=== PATIENT | female | born 1990 | race Caucasian/White ===

== ENCOUNTER → 2019-11-15 14:06 | Outpatient (CLI) | payer BC, SELFPAY ==
[2019-11-16 18:21] LABS: COVID19 Sendout Not Detected (Not Detect)
== END ==
PROVIDERS: Visit Provider Physician Assistant
DX: Z11.59 Encounter for screening for other viral diseases (principal)
CPT/HCPCS: 87635

== ENCOUNTER 2019-11-19 13:34 | Observation (INO) | payer BC, SELFPAY ==
[2019-11-11 09:43] VITALS: BMI 25.4
[2019-11-18] VITALS (15 sets, daily range): BP systolic 109–141; BP diastolic 57–92; PULSE 86–113; RESP 11–18; TEMP 36.2–36.6; O2SAT 94–100; BMI 25.0
--- NOTE | 2019-11-18 | DI.RAD.S_ITS ---
PROCEDURE: XR LUMBAR SPINE 2-3V INDICATIONS: S1-S2 TLIF TECHNIQUE: 2 views of the lumbar spine were acquired. COMPARISON: None. FINDINGS: Bones: 2 submitted intraoperative C-arm images demonstrate posterior/interbody fusion at the L5-S1 level with fixation hardware and disc spacer in expected position. Soft tissues: Overlying bowel gas pattern is normal. No suspicious soft tissue calcifications. IMPRESSION: Posterior/interbody fusion L5-S1. Dictated by: Marcial Hatfield [facility] Interpreted: Mook Del Toro MD on 11/18/2019 at 16:04 Approved by: Mook Del Toro M.D. on 11/18/2019 at 17:40
[2019-11-18] MEDS: LACTATED RINGERS 1,000 ML 42 ML IV ×2 (10:15→14:09)
--- NOTE | 2019-11-18 11:36 | PM.PREOP ---
Pre-operative Note COVID-19 COVID-19 status: Negative Result date/Date tested (Pos, Neg/Pending): 11/16/19 Interval Note History & Physical reviewed/Exam performed by Physician: Yes Changes to H&P: No
[2019-11-18] MEDS: CEFAZOLIN 2 GM/100 ML FROZ.PIGGY IV (12:05)
--- NOTE | 2019-11-18 12:47 | SUR.OPER ---
Prone on spine table, head in foam head support, padded chest and pelvic supports, gel pad at knees, lower legs supported by pillows; nipples, genitalia and toes free of pressure, arms secured on foam padded arm boards at <90 degrees abduction. Tape over blanket at thigh secured to table.
[2019-11-18] MEDS: BUPIVACAINE 0.25% W/ EPI 30 ML VIAL INJ (12:59)
[2019-11-18] MEDS: BUPIVACAINE LIPOSOME 266 MG/20 ML VIAL INJ (12:59)
--- NOTE | 2019-11-18 15:48 | P.OP_ITS ---
Operative Date/Time/Diagnoses Date of procedure: 11/18/19 Time of procedure: 13:22 Pre-op diagnosis: 1. S1-S2 spondylolisthesis 2. S1-S2 spinal stenosis with neurogenic claudication Post-op diagnosis: same Procedure & Clinicians Procedure: 1. S1-S2 Postero-lateral and posterior interbody fusion 2. S1-S2 interbody cage placement. 3. S1-S2 decompressive laminectomy with bilateral facetecomies 4. S1-S2 Posterior non-segmental instrumentation 5. [place] of bone marrow from iliac crest 6. Utilization of microsurgical technique and operating microscope Same procedure as scheduled: Yes Indications: Patient has been having chronic back pain and worsening lumbar radiculopathy. Patient has transitional anatomy of her lumbar spine. The most caudal mobile segment is named as S1-S2 by radiologist. To keep the nomenclature consistent with documentation during surgery, where also calling the level that is being operated on S1-S2. The anatomy of the S1-S2 is of that of lumbar sacral junction. Patient failed multiple conservative management with worsening pain weakness and numbness in her lower extremity. Patient has been having difficulty performing activity of daily living. After discussing risks benefits of treatment options, patient elected proceed with surgery. Surgeon: Jose Gunderson Soaker Hides: Shiraz Moore Click Yes if Unassisted: No Anesthesia Type: General Operative Notes Closure Type: primary Specimen(s): none sent Prosthetic devices, grafts, tissues, transplants, or devices: Globus revolve screws, Expandible titanium cages Estimated Blood Loss (mL): 100 Blood products transfused: none Procedure in detail: Patient was seen in the preoperative area. Risks and benefits of the surgery was discussed with the patient. Informed consent was obtained from the patient and placed in the chart. Surgical site was marked. Patient was taken to the operative room. General anesthesia was administered. Prophylactic antibiotic was given to the patient less than 30 min before the incision was made. Patient was placed into a prone position on the Marty table. Patient's back was then prepped and draped in the sterile fashion. Time- out was performed at this time. Using AP and lateral C-arm imaging the interval between S1-S2 was identified and marked on patient's back. Patient has transitional anatomy at her lumbosacral junction. In order to keep nomenclature consistent with radiologist, the lumbosacral junctional level will be named S1-S2. A 2 inch incision 2 in from midline was made on the right side first. The fascia was incised in line with skin incision. Globus MARS retractors was placed inside the incision and docked onto the S1 lamina. Using microsurgical technique and operating microscope, a S1 laminectomy and S1-S2 facetectomy was performed using a Kerrison rongeur. Patient's S1-S2 level was found to be grossly unstable with spondylolisthesis. Patient was found have severe neural foramen stenosis as well as central stenosis. The stenosis was fully decompressed after the laminectomy and facetectomy was completed. Patient's S1-S2 level was unstable and require fusion procedure to stabilize. The disc space at S1-S2 was identified. And a total diskectomy was performed at S1-S2 level. The endplates were decorticated using a rasp and shaver. The total diskectomy and decortication was performed at S1-S2 level in order to to accomplish a S1-S2 fusion. The local bone from the laminectomy and facetectomy was saved for local bone grafting. After the total diskectomy and decortication was completed, Trifecta bone graft material was combined with local bone that was harvested earlier. At this time, a separate skin is incision was made over the iliac crest. A Jamshidi needle was inserted into the iliac crest through a separate skin incision. 5 cc of bone marrow aspiration was obtained through the separate skin incision using a Jamshidi needle from the iliac crest. The bone marrow aspiration was combined with local bone and the Trifecta bone grafting material. The bone grafting material was placed into the S1-S2 interbody space along with a expandable cage. The cage was expanded to its maximum height using the torque limiting screwdriver. At this time a mirror image incision was made on the left side. The fascia was incised in line with the skin incision. Globus MARS retractor was inserted and docked onto the S1-S2 posterolateral gutter. Using the power drill, posterior- lateral decortication was performed at S1-S2 level until bleeding cortical bone was identified. The remaining bone grafting material was placed into the S1-S2 posterior lateral gutter he order to accomplish posterolateral fusion at the S1- S2 level. Using the double C-arm technique, pedicle screws were placed into the S1-S2 pedicles bilaterally. This was done by placing the Jamshidi needle into the pedicles, then placing the guidewires over the Jamshidi needle, and finally placing the cannulated screws over the guidewires bilaterally. After the pedicle screws were placed, 2 titanium rods was locked into the heads of the pedicle screws using locking caps and torque limiting screwdriver. Thread reducers was used to reduce patient's spondylolisthesis, and adequate reduction was accom plished using the threaded do stairs. After all the hardware was placed, and confirmed with AP and lateral C-arm imaging, the wound was then irrigated with sterile normal saline and packed with Ray-Mary gauze for 3 min to accomplish hemostasis. After the gauze was removed the deep fascia was closed with #1 Vicryl suture. The subcutaneous layer was closed with 2-0 Vicryl. The skin was closed with skin keara. Patient tolerated the procedure well. There were no complications. Complications: none Post-operative Condition: stable Disposition: PACU Plan for aftercare: Admit to inpatient hospital
[2019-11-18] MEDS: HYDROMORPHONE 2 MG INJ IV ×2 (16:00→16:17)
[2019-11-18] MEDS: fentaNYL 100 MCG/2 ML INJ IV (16:07)
--- NOTE | 2019-11-18 16:30 | SUR.PHASEI ---
Pt turned and positioned on l side, moved well with assist. Report to Jace, medicated with fentanyl and dilaudid.
--- NOTE | 2019-11-18 17:01 | SUR.PHASEI ---
Pt transported to room 223 on room air, report to Jace, left pt in stable condition. Placed on 1/l nasal cannula 02 and bed low, locked and call marcial in hand, SCD's on.
[2019-11-18] MEDS: HYDROMORPHONE 0.5 MG INJ IV ×2 (18:05→20:44)
[2019-11-18] MEDS: SODIUM CHLORIDE 0.9% 1,000 ML 100 ML IV (18:05)
[2019-11-18] MEDS: ONDANSETRON 4 MG/2 ML INJ IV (20:44)
[2019-11-18] MEDS: SENNOSIDES 8.6 MG TABLET 17.2 MG PO (20:45)
[2019-11-18] MEDS: CEFAZOLIN 1 GM/50 ML FROZ.PIGGY IV (20:45)
[2019-11-18] MEDS: DOCUSATE 100 MG CAPSULE PO (20:45)
[2019-11-18] MEDS: OXYCODONE IR 10 MG TABLET PO (23:43)
[2019-11-18] MEDS: hydrOXYzine pamoate 25 MG CAPSULE PO (23:44)
[2019-11-19] VITALS (7 sets, daily range): BP systolic 104–134; BP diastolic 59–86; PULSE 76–110; RESP 16–18; TEMP 35.9–37.9; O2SAT 93–100
[2019-11-19] MEDS: OXYCODONE IR 10 MG TABLET PO ×6 (03:27→23:28)
[2019-11-19] MEDS: CEFAZOLIN 1 GM/50 ML FROZ.PIGGY IV (03:30)
[2019-11-19] MEDS: SODIUM CHLORIDE 0.9% 1,000 ML 100 ML IV (05:09)
[2019-11-19] MEDS: hydrOXYzine pamoate 25 MG CAPSULE PO ×2 (07:33→20:13)
--- NOTE | 2019-11-19 08:38 | PC.NURSE ---
PATIENT C/O NAUSEA AND PAIN 7/10 THIS AM. GIVEN 10MG OXYCODONE AND 25MG VISTARIL PO. PATIENT TOOK NAP, AWOKE FOR BREAKFAST, STATES NAUSEA RESOLVED, ACTUALLY FEELS HUNGRY AND PAIN DOWN TO 3/10.
--- NOTE | 2019-11-19 09:32 | PT.IIE ---
Current Diagnoses Spondylolisthesis, lumbosacral region (11/18/19) Spinal stenosis, lumbar region with neurogenic claudication (11/18/19) Surgery Performed Operation Date: 11/18/19 11:45 Actual Procedures p S1-S2 TLIF - Jose Gunderson MD Surgical History (Last Updated 11/11/19 @ 10:01 by Jessa Lee, RN) [place] teeth removed (Acute) Medical History (Last Updated 11/11/19 @ 10:03 by Jessa Lee RN) Depression (Acute) Migraines (Acute) Sciatica (Acute) Spinal stenosis (Acute) Physical Therapy Inpatient Evaluation/Re-Eval M1 PT/OT-IP Prior Functional Status Start: 11/19/19 11:35 Freq: NEEDED Status: Active Protocol: Document 11/19/19 09:32 AB (Rec: 11/19/19 11:53 AB [email or web address]) Medical Review Prior Functional Status Medical History Reviewed Yes Communication able to make needs known Mobility and Gait pt stated that she is independent with all mobilities and ambulation without AD Social History Household Members significant other,children Living Arrangements Apartment/Condo Number of Floors (Floors) One Floor Number of Stairs To Enter/Railing? no steps to enter Home Environment Standard Height Toilet,Tub/ Shower Home Equipment Front Wheel Walker Additional Social History Comment pt also stated that her mom will stay with her to help her at home pt works as a market president. M2 PT-IP Current Condition Start: 11/19/19 11:35 Freq: NEEDED Status: Active Protocol: Document 11/19/19 09:32 AB (Rec: 11/19/19 11:53 AB [email or web address]) Physical Therapy Current Condition Current Condition Evaluation Date 11/19/19 Treatment Diagnosis s/p S2S2 postlat/post fusion/ lami; difficulty in walking Onset Date 11/18/19 Precautions Lumbar Precautions Log Roll,No Twisting,Limit Bending,Lifting Restriction of 10 lbs,Gait Belt above Incisional Area M3 PT-IP Subjective Start: 11/19/19 11:35 Freq: NEEDED Status: Active Protocol: Document 11/19/19 09:32 AB (Rec: 11/19/19 11:53 AB [email or web address]) Subjective Physical Therapy Visit Type Type Initial Evaluation Visit Start Time 09:32 Visit Stop Time 10:15 Total Visit Minutes 43 Number of ACCOUNTS RECEIVABLE ACCOUNTANT Visits 0 Physical Therapy Visit Comments Patient Comments agreeable to do PT; pt is drowsy with slow reaction time /responses to instructions and questions Therapy Pain Assessment Pain When Pain Assessed At Rest Pain Present Pain Present Pain Reported Location back Intensity 4 Scale Used increases to 8/10 with mobility Pain Management Techniques Apply Cold,Modification of Treatment,Re-positioning, Timing of Activity with Medications M4 PT-IP Mobility and Gait Start: 11/19/19 11:35 Freq: NEEDED Status: Active Protocol: Document 11/19/19 09:32 AB (Rec: 11/19/19 11:53 AB [email or web address]) PT-Bed Mobility Assessment Rolling Type of Rolling Log Rolling Level of Assist Moderate Assistance,Maximal Assistance,1 Person Assistance Supine to Sit Supine to Sit Maximum Assistance,1 Person Assistance Scooting Scooting to Edge of Bed Moderate Assistance,Maximum Assistance PT-Transfer Assessment Sit to and From Stand Sit to and from Stand Moderate Assistance,Maximum Assistance,1 Person Assistance ,2 Person Assistance,Use of Upper Extremities Equipment Transfer Assistive Device Gait Belt,Front Wheeled Walker Transfers Transfer Destination Toilet Transfer Technique ambulated using FWW Transfer Ability Level of Assist Moderate Assistance,Maximum Assistance,1 Person Assistance ,2 Person Assistance,Use of Upper Extremities Comments Mobility Comments educated on back precautions and log roll bed mobility. completed supine to sit max A and max cues. pt was able to sit on EOB SBA to CGA. c/o increase back pain 8/10. completed sit to stand mod to max A x 1-2 and max cues. initial max A for ambulation but able to ambulate towards the toilet and only requiring mod A hallway to the toilet. required max A for controlled descent to the toilet. required assist for brief management. completed sit to stand from the toilet mod to max A and max cues. ambulated towards the chair mod A using FWW. pt agreed to sit up on chair. positioned on chair. call light and table placed wtihin reach. Gait Assessment Gait Gait Assistance Required: Moderate Assistance,Maximum Assistance,1 Person Assist Distance (Feet) 20 Able to Maintain Weight Bearing Status Yes During Gait Assistive Devices Assistive Device Gait Belt,Front Wheeled Walker Orthotic/Prosthetic Devices or Brace: No Gait Deviations General Gait Pattern Antalgic,Decreased Stride Length,Decreased Feet Clearance Factors Limiting Gait Function Factors Limiting Gait Function Decreased Activity Tolerance, Decreased Strength,Limited Range of Motion,Pain,Poor Balance,Poor Safety Awareness Comments Gait Comments pls refer to the mobility section for details PT-Balance Assessment Sitting Balance and Reactions Static Sitting Balance Ability Good Dynamic Sitting Balance Ability Good Standing Balance and Reactions Static Standing Balance Ability Fair Dynamic Standing Balance Ability Fair Device Used FWW M5 PT-IP Objective Assessments Start: 11/19/19 11:35 Freq: NEEDED Status: Active Protocol: Document 11/19/19 09:32 AB (Rec: 11/19/19 11:53 AB [email or web address]) Orientation Orientation/Cognition Level of Alertness Alert Orientation Name Language Function Ability No Deficits Noted Safety Awareness Understands Safety Issues, Decreased Safety Awareness Gross Range of Motion Lower Extremity ROM Assessment Within Functional Limits Strength Lower Extremity Strength Assessment Bilaterally Impaired Comments Strength Comments LLE: 3+/5 RLE 3-/5 Coordination Assessment Gross Coordination Gross Coordination WNL Sensation Assessment Sensation Gross Sensation WNL Muscle Tone Muscle Tone WNL Yes M6 PT-IP Treatment Start: 11/19/19 11:35 Freq: NEEDED Status: Active Protocol: Document 11/19/19 09:32 AB (Rec: 11/19/19 11:53 AB [email or web address]) Physical Therapy Treatment Education Education Provided Precautions,Weight Bearing Status,Post-Op Packet,Safety M7 PT-IP Assessment and Plan Start: 11/19/19 11:35 Freq: NEEDED Status: Active Protocol: Document 11/19/19 09:32 AB (Rec: 11/19/19 11:53 AB [email or web address]) PT Summary Assessment and Plan Potential Rehabilitation Potential Good Status of Condition at Evaluation Evolving Summary Impairments Pain,ROM,Strength,Balance, Coordination,Sensation,Tone, Cognition,Bed Mobility, Transfers,Gait,Activity Tolerance Assessment Summary pt requiring mod to max A with mobility and with c/o increase back pain affecting mobility. pt will have her family to assist her at home. will conduct caregiver training when appropriate. pt will likely progress during hospital stay and if pain is better controlled, pt will be able to mobilize better and go home with assistance. will continue to assess progress. Goals Bed Mobility Goal Standby Assistance Transfer Goal Standby Assistance,Front Wheeled Walker Gait Goal Standby Assistance,Front Wheel Walker Gait Distance 150 Days to Meet Goals 5 Frequency of Treatment Frequency Of Treatment Twice a Day Treatment Plan Physical Therapy Treatment Plan Bed Mobility Training,Transfer Training,Gait Training, Therapeutic Exercise,Balance Retraining,Post Op Education, Discharge Planning,Hot or Cold Pack,Neuromuscular Re-ed, Coordination Retraining,Manual Therapy Recommendations To Nursing Amount of Assist Needed 1 Person Assist Discharge Recommendations PT Discharge Recommendations Home with Assistance Transportation Needs at Discharge Private Vehicle
[2019-11-19] MEDS: HYDROMORPHONE 0.5 MG INJ IV ×4 (10:19→22:54)
[2019-11-19] MEDS: ONDANSETRON 4 MG/2 ML INJ IV (10:19)
[2019-11-19] MEDS: DOCUSATE 100 MG CAPSULE PO ×2 (10:19→21:02)
[2019-11-19] MEDS: ACETAMINOPHEN 325 MG TABLET 650 MG PO (10:19)
--- NOTE | 2019-11-19 10:45 | PM.PNPO.1 ---
Subjective Subjective Date Patient Seen: 11/19/19 Time Patient Seen: 07:31 Interval history: pain moderate to severe. Some nausea no vomiting. Has not yet worked with physical therapy. No fever chills. Exam Vital Signs (past 8 hours): - 11/19/19 03:41 11/19/19 08:00 Temperature 97.7 F 98.6 F Pulse Rate 89 97 H Respiratory Rate 16 18 Blood Pressure 124/81 120/71 Pulse Oximetry 99 100 Oxygen Delivery Method Nasal Cannula Oxygen Flow Rate 0 Narrative Exam Narrative: 28-year-old female resting comfortably in bed in no apparent distress. Lumbar dressing is clean, dry and intact. Motor functions intact bilateral lower extremities. Sensation grossly intact to light touch bilateral lower extremities. Assessment & Plan Post-op Postoperative Procedures: Procedures Operation Date: 11/18/19 11:45 Actual Procedures Side Surgeon p S1-S2 TLIF Jose Gunderson MD postop day 1. Mobilize with physical therapy. Limit bending, twisting, lifting. Continue work on pain control. Add scopolamine patch. likely dc tomorrow. Quality VTE Deep Vein Thrombosis/Pulmonary Embolism Present on Admission: No
--- NOTE | 2019-11-19 10:57 | CM.DANOTE ---
DCP: Case received, EMR reviewed and met with patient. Introduced self and role. Was able to obtain some information from patient regarding her baseline activity level prior to surgery. DCP assessment completed with information currently available. Patient is a 28 year old female who admitted yesterday morning to the care of the orthopedic team. Payer: confirmed: BS [facility] of [facility]. Patient came to the hospital for a surgical procedure. She had S1-S2 postero-lateral fusion. Patient has had history of chronic back and leg pain since she was 19, and history of spinal stenosis. Met with patient in her room. She was sitting up in bed. She is independent at baseline, she resides in [facility] with her life partner, Norman Erickson. She also has an 8 year old son. She is employed at [employer]. P: DCP to continue to follow. Patient should be able to go home when she is medically stable and works with [employer] Chelita Smith RN/[employer]
[2019-11-19] MEDS: SCOPOLAMINE 1 PATCH TOP (11:18)
--- NOTE | 2019-11-19 13:58 | PT.IPTN ---
note reviewed by Caridad Hardin PTA Current Diagnoses Spondylolisthesis, lumbosacral region (11/19/19) Spinal stenosis, lumbar region with neurogenic claudication (11/19/19) Surgery Performed Operation Date: 11/18/19 11:45 Actual Procedures p S1-S2 TLIF - Jose Gunderson MD Physical Therapy Treatment Note M2 PT-IP Current Condition Start: 11/19/19 11:35 Freq: NEEDED Status: Active Protocol: Document 11/19/19 13:29 TP (Rec: 11/19/19 14:45 TP [id number]) Physical Therapy Current Condition Current Condition Evaluation Date 11/19/19 Treatment Diagnosis s/p S2S2 postlat/post fusion/ lami; difficulty in walking Onset Date 11/18/19 Precautions Lumbar Precautions Log Roll,No Twisting,Limit Bending,Lifting Restriction of 10 lbs,Gait Belt above Incisional Area M3 PT-IP Subjective Start: 11/19/19 11:35 Freq: NEEDED Status: Active Protocol: Document 11/19/19 13:29 TP (Rec: 11/19/19 14:45 TP [id number]) Subjective Physical Therapy Visit Type Type Treatment Note Visit Start Time 13:29 Visit Stop Time 13:58 Total Visit Minutes 29 Notes Student NAE Pham supervised by NAE Pham. Number of RECORDS MANAGEMENT ENGINEER Visits 1 Physical Therapy Visit Comments Patient Comments Pt agreeable to participate with PT. Therapy Pain Assessment Pain When Pain Assessed At Rest Pain Present Pain Present Pain Reported Location back Intensity 3 Scale Used Numeric (0 - 10) Pain Behaviors Facial Grimacing,Guarding, Wincing Pain Management Techniques Apply Cold,Modification of Treatment,Re-positioning, Timing of Activity with Medications M4 PT-IP Mobility and Gait Start: 11/19/19 11:35 Freq: NEEDED Status: Active Protocol: Document 11/19/19 13:29 TP (Rec: 11/19/19 14:45 TP [id number]) PT-Bed Mobility Assessment Rolling Type of Rolling Log Rolling Level of Assist Minimal Assistance,1 Person Assistance Supine to Sit Supine to Sit Moderate Assistance,Maximum Assistance,1 Person Assistance Scooting Scooting to Edge of Bed Standby Assistance PT-Transfer Assessment Sit to and From Stand Sit to and from Stand Minimal Assistance,Moderate Assistance,1 Person Assistance ,Use of Upper Extremities Equipment Transfer Assistive Device Gait Belt,Front Wheeled Walker Orthotic/Prosthetic Devices or Brace: No Transfers Transfer Destination Chair,Toilet Transfer Technique ambulated using FWW Transfer Ability Level of Assist Minimal Assistance,Moderate Assistance,1 Person Assistance ,Use of Upper Extremities Comments Mobility Comments Pt reclined in bed upon arrival, drowsy. Agreeable to participate with PT. Pt recalls 3/3 spinal precautions . HOB lowered to flat. Log roll L, CGA-Davis x1. L sidelying to sit, Mod-MaxA x1 for trunk support with verbal cues to push off bed with UE. In sitting, pt reported increase of pain with mild dizziness. Gait belt donned for safety. Sit to stand FWW, Min-ModA x1. Ambulation in hallway, approximately 175', FWW CGA and assist for IV management. Verbal cues for heel-toe gait and increased stride length as tolerated. In room, pt expressed need for use of toilet. Ambulation to restroom FWW, SBA. Stand to sit on toilet FWW/grab bar, SBA. Pt able to void bladder. Sit to stand and ambulation with FWW, SBA to sink to wash hands. Ambulation to chair and stand to sit in chair, FWW SBA with verbal cues for hand placement for slow controlled descent. Pt notes increase of pain during transfers. Uses breathing techniques to decrease pain. Pt positioned in chair with call light and all other needs within reach, ice positioned on low back. Pt education regarding importance of performing ankle pumps each hour. Boyfriend will be present tomorrow for caregiver training. Nurse notified of pt's progress and ability to eliminate. Gait Assessment Gait Gait Assistance Required: Standby Assistance,Contact Guard Assist,Minimum Assistance,1 Person Assist Distance (Feet) 175 Able to Maintain Weight Bearing Status Yes During Gait Assistive Devices Assistive Device Gait Belt,Front Wheeled Walker Orthotic/Prosthetic Devices or Brace: No Gait Deviations General Gait Pattern Antalgic,Decreased Stride Length,Decreased Feet Clearance Factors Limiting Gait Function Factors Limiting Gait Function Decreased Activity Tolerance, Decreased Strength,Limited Range of Motion,Pain,Poor Balance,Poor Safety Awareness Comments Gait Comments see mobility comments PT-Balance Assessment Sitting Balance and Reactions Static Sitting Balance Ability Normal Dynamic Sitting Balance Ability Good Standing Balance and Reactions Static Standing Balance Ability Fair Dynamic Standing Balance Ability Fair Device Used FWW M5 PT-IP Objective Assessments Start: 11/19/19 11:35 Freq: NEEDED Status: Active Protocol: Document 11/19/19 09:32 AB (Rec: 11/19/19 11:53 AB [id number]) Orientation Orientation/Cognition Level of Alertness Alert Orientation Name Language Function Ability No Deficits Noted Safety Awareness Understands Safety Issues, Decreased Safety Awareness Gross Range of Motion Lower Extremity ROM Assessment Within Functional Limits Strength Lower Extremity Strength Assessment Bilaterally Impaired Comments Strength Comments LLE: 3+/5 RLE 3-/5 Coordination Assessment Gross Coordination Gross Coordination WNL Sensation Assessment Sensation Gross Sensation WNL Muscle Tone Muscle Tone WNL Yes M6 PT-IP Treatment Start: 11/19/19 11:35 Freq: NEEDED Status: Active Protocol: Document 11/19/19 13:29 TP (Rec: 11/19/19 14:45 TP [id number]) Physical Therapy Treatment Education Education Provided Precautions,Weight Bearing Status,Safety M7 PT-IP Assessment and Plan Start: 11/19/19 11:35 Freq: NEEDED Status: Active Protocol: Document 11/19/19 13:29 TP (Rec: 11/19/19 14:45 TP [id number]) PT Summary Assessment and Plan Potential Rehabilitation Potential Good Status of Condition at Evaluation Evolving Summary Impairments Pain,ROM,Strength,Balance, Coordination,Sensation,Tone, Cognition,Bed Mobility, Transfers,Gait,Activity Tolerance Assessment Summary Pt mobility improved this afternoon with increased gait distance to 175' with FWW, CGA . Pain is 3/10 at rest and during gait, with increase of pain during transfers. Pt will have assistance at home. Boyfriend will be present tomorrow for caregiver training around 1000. Pt requires Min-ModA x1 for transfers and bed mobility. Continue PT to improve strength, endurance and activity tolerance for safe mobility. Anticipate pt to be clear from PT tomorrow for discharge with assist, pending caregiver training. Goals Bed Mobility Goal Standby Assistance Transfer Goal Standby Assistance,Front Wheeled Walker Gait Goal Standby Assistance,Front Wheel Walker Gait Distance 150 Days to Meet Goals 5 Frequency of Treatment Frequency Of Treatment Twice a Day Treatment Plan Physical Therapy Treatment Plan Bed Mobility Training,Transfer Training,Gait Training, Therapeutic Exercise,Balance Retraining,Post Op Education, Discharge Planning,Hot or Cold Pack,Neuromuscular Re-ed, Coordination Retraining,Manual Therapy Other Recommendations and Next Treatment caregiver training at 1000, Focus log roll, transfers Recommendations To Nursing Amount of Assist Needed 1 Person Assist Discharge Recommendations PT Discharge Recommendations Home with Assistance Transportation Needs at Discharge Private Vehicle
--- NOTE | 2019-11-19 18:34 | PC.NURSE ---
PATIENT AMB IN HALLS WITH FAMILY STEADY ON FEET
[2019-11-19] MEDS: SENNOSIDES 8.6 MG TABLET 17.2 MG PO (21:02)
[2019-11-20 03:00] VITALS: BP 108/67; PULSE 112; RESP 16; TEMP 37.3; O2SAT 96
[2019-11-20] MEDS: HYDROMORPHONE 0.5 MG INJ IV ×3 (03:03→12:10)
[2019-11-20] MEDS: ACETAMINOPHEN 325 MG TABLET 650 MG PO ×3 (03:06→16:20)
[2019-11-20] MEDS: hydrOXYzine pamoate 25 MG CAPSULE PO ×3 (03:06→16:58)
--- NOTE | 2019-11-20 03:08 | PC.NURSE ---
Dressing dry/intact, small amount of shadow discharge. Pain minimally controlled w/0.5 mg Dilaudid. Pt c/o spasms - Vistaril given - pt notes previously good results. 1L O2 applied when sleeping.
[2019-11-20] MEDS: OXYCODONE IR 10 MG TABLET PO ×4 (06:57→16:58)
--- NOTE | 2019-11-20 07:56 | PM.PN.1 ---
Exam Vital Signs (past 8 hours): - 11/20/19 03:00 Temperature 99.1 F Pulse Rate 112 H Respiratory Rate 16 Blood Pressure 108/67 Pulse Oximetry 96 Oxygen Delivery Method Room Air Oxygen Flow Rate 0 Assessment & Plan Assessment & Plan narrative: POD#2 s/p S1-S2 TLIF. Slow to mobilize due to pain in lumbar spine. Neurovascularly intact. Dressing clean and dry. No s/s of DVT. Continue PT/OT, possible d/c today to home once cleared. Quality VTE Deep Vein Thrombosis/Pulmonary Embolism Present on Admission: No
[2019-11-20 08:00] VITALS: BP 119/66; PULSE 90; RESP 16; TEMP 36.8; O2SAT 97
[2019-11-20] MEDS: DOCUSATE 100 MG CAPSULE PO ×2 (08:44→20:19)
[2019-11-20] MEDS: MULTIVITAMIN 1 TABLET 1 TAB PO (08:44)
--- NOTE | 2019-11-20 08:51 | PC.NURSE ---
Addendum entered by Irene Springer R.N. 11/20/19 13:38: Showered, dressing changed, Pt still needing IV pain control. Will address if she is feeling ready to d/c today. Original Note: Am shift Pt is significant 7/10 pain at start of shift. Just rec'd oxycodone by offgoing RN, remedicated with IV pain control and vistaril. Will attempt pain control prior to PT this AM.
--- NOTE | 2019-11-20 10:28 | PT.IPTN ---
Current Diagnoses Spondylolisthesis, lumbosacral region (11/19/19) Spinal stenosis, lumbar region with neurogenic claudication (11/19/19) Surgery Performed Operation Date: 11/18/19 11:45 Actual Procedures p S1-S2 TLIF - Jose Gunderson MD Physical Therapy Treatment Note M2 PT-IP Current Condition Start: 11/19/19 11:35 Freq: NEEDED Status: Active Protocol: Document 11/20/19 09:58 TP (Rec: 11/20/19 14:13 TP [id number]) Physical Therapy Current Condition Current Condition Evaluation Date 11/19/19 Treatment Diagnosis s/p S2S2 postlat/post fusion/ lami; difficulty in walking Onset Date 11/18/19 Precautions Lumbar Precautions Log Roll,No Twisting,Limit Bending,Lifting Restriction of 10 lbs,Gait Belt above Incisional Area M3 PT-IP Subjective Start: 11/19/19 11:35 Freq: NEEDED Status: Active Protocol: Document 11/20/19 09:58 TP (Rec: 11/20/19 14:13 TP [id number]) Subjective Physical Therapy Visit Type Type Treatment Note Visit Start Time 09:58 Visit Stop Time 10:28 Total Visit Minutes 30 Notes Student NAE Pham supervised by NAE Ramesh. Pt's boyfriend present and provided assistance during tx for caregiver training. Number of RESIDENTIAL FINISH CARPENTER Visits 2 Physical Therapy Visit Comments Patient Comments Pt agreeable to participate with PT. Therapy Pain Assessment Pain When Pain Assessed During Weight Bearing Pain Present Pain Present Pain Reported Location back Intensity 5 Scale Used Numeric (0 - 10) Pain Behaviors Facial Grimacing,Guarding, Wincing Pain Management Techniques Apply Cold,Modification of Treatment,Re-positioning, Timing of Activity with Medications M4 PT-IP Mobility and Gait Start: 11/19/19 11:35 Freq: NEEDED Status: Active Protocol: Document 11/20/19 09:58 TP (Rec: 11/20/19 14:13 TP [id number]) PT-Bed Mobility Assessment Rolling Type of Rolling Log Rolling Level of Assist Contact Guard Assistance, Minimal Assistance,1 Person Assistance Supine to Sit Supine to Sit Contact Guard Assistance, Minimal Assistance,1 Person Assistance Sit to Supine Sit to Supine Contact Guard Assistance,1 Person Assistance Scooting Scooting to Edge of Bed Standby Assistance PT-Transfer Assessment Sit to and From Stand Sit to and from Stand Contact Guard Assistance, Minimal Assistance,1 Person Assistance Equipment Transfer Assistive Device Gait Belt,Front Wheeled Walker Orthotic/Prosthetic Devices or Brace: No Transfers Transfer Destination Bed,Chair Transfer Technique ambulated using FWW Transfer Ability Level of Assist Contact Guard Assistance, Minimal Assistance,1 Person Assistance Comments Mobility Comments Pt standing at sink brushing teeth with nursing present upon arrival. Pt agreeable to mobilize with PT. Gait belt donned for safety. Ambulation to L EOB FWW, SBA. Stand to sit at EOB, FWW CGA. Pain increases during transfer to . Log roll x 2 with verbal cues for trunk support through BUE. Education for boyfriend to provide assistance to her BLE as needed. Ambulation in hallway and back to chair in room, approximately 160', FWW CGA. Pt demonstrates good recall of heel toe gait from yesterday' s tx. Sit to stand at chair with cues to reach back to chair with UE. Pain increase during transfer, pt utilizes breathing techniques to manage pain. Pt positioned in chair with call light and all other needs within reach. Education for safe entry and exit of vehicle upon discharge , safe entry into tall bed, FWW adjustment at home, and mobilization each waking hour. Nursing notified of pt's progress. Gait Assessment Gait Gait Assistance Required: Standby Assistance,Contact Guard Assist,1 Person Assist Distance (Feet) 160 Able to Maintain Weight Bearing Status Yes During Gait Assistive Devices Assistive Device Gait Belt,Front Wheeled Walker Orthotic/Prosthetic Devices or Brace: No Gait Deviations General Gait Pattern Antalgic,Decreased Stride Length,Decreased Feet Clearance Factors Limiting Gait Function Factors Limiting Gait Function Decreased Activity Tolerance, Decreased Strength,Limited Range of Motion,Pain,Poor Balance,Poor Safety Awareness Comments Gait Comments see mobility comments Stair Climbing Assessment Comments Stair Climbing Comments Not assessed. No stairs at home. PT-Balance Assessment Sitting Balance and Reactions Static Sitting Balance Ability Normal Dynamic Sitting Balance Ability Good Standing Balance and Reactions Static Standing Balance Ability Good Dynamic Standing Balance Ability Good Device Used FWW M5 PT-IP Objective Assessments Start: 11/19/19 11:35 Freq: NEEDED Status: Active Protocol: Document 11/19/19 09:32 AB (Rec: 11/19/19 11:53 AB [id number]) Orientation Orientation/Cognition Level of Alertness Alert Orientation Name Language Function Ability No Deficits Noted Safety Awareness Understands Safety Issues, Decreased Safety Awareness Gross Range of Motion Lower Extremity ROM Assessment Within Functional Limits Strength Lower Extremity Strength Assessment Bilaterally Impaired Comments Strength Comments LLE: 3+/5 RLE 3-/5 Coordination Assessment Gross Coordination Gross Coordination WNL Sensation Assessment Sensation Gross Sensation WNL Muscle Tone Muscle Tone WNL Yes M6 PT-IP Treatment Start: 11/19/19 11:35 Freq: NEEDED Status: Active Protocol: Document 11/20/19 09:58 TP (Rec: 11/20/19 14:13 TP [id number]) Physical Therapy Treatment Education Education Provided Precautions,Weight Bearing Status,Safety M7 PT-IP Assessment and Plan Start: 11/19/19 11:35 Freq: NEEDED Status: Active Protocol: Document 11/20/19 09:58 TP (Rec: 11/20/19 14:13 TP [id number]) PT Summary Assessment and Plan Potential Rehabilitation Potential Good Status of Condition at Evaluation Evolving Summary Impairments Pain,ROM,Strength,Balance, Coordination,Sensation,Tone, Cognition,Bed Mobility, Transfers,Gait,Activity Tolerance Assessment Summary Pt continues to have pain during transfers, but pain diminishes during ambulation. Pt ambulated 160' today with FWW and boyfriend providing CGA. Pt demonstrates safe technique for log roll and recalls spinal precautions 3/3 . Caregiver training is complete, and pt has FWW for home use. Pt is safe to discharge home with assist when medically stable. Goals Bed Mobility Goal Standby Assistance Transfer Goal Standby Assistance,Front Wheeled Walker Gait Goal Standby Assistance,Front Wheel Walker Gait Distance 150 Days to Meet Goals 5 Frequency of Treatment Frequency Of Treatment Twice a Day Treatment Plan Physical Therapy Treatment Plan Bed Mobility Training,Transfer Training,Gait Training, Therapeutic Exercise,Balance Retraining,Post Op Education, Discharge Planning,Hot or Cold Pack,Neuromuscular Re-ed, Coordination Retraining,Manual Therapy Other Recommendations and Next Treatment ther ex, transfers, increase Focus ambulation Recommendations To Nursing Amount of Assist Needed 1 Person Assist Discharge Recommendations PT Discharge Recommendations Home with Assistance Other Discharge Recommendations Pt ready to discharge home with assist when medically stable Transportation Needs at Discharge Private Vehicle
--- NOTE | 2019-11-20 11:50 | OT.IP.TRT ---
Current Diagnoses Spondylolisthesis, lumbosacral region (11/19/19) Spinal stenosis, lumbar region with neurogenic claudication (11/19/19) Surgery Performed Operation Date: 11/18/19 11:45 Actual Procedures p S1-S2 TLIF - Jose Gunderson MD Occupational Therapy Treatment Note M2 OT-IP Current Condition Start: 11/19/19 11:57 Freq: Status: Active Protocol: Document 11/19/19 11:58 [facility] (Rec: 11/19/19 12:17 [facility] [id number]) Occupational Therapy Current Condition Current Condition Evaluation Date 11/19/19 Treatment Diagnosis Spinal stenosis, s/p S1-S2 TLIF Post Operative Precautions Lumbar Precautions Log Roll,No Twisting,Limit Bending,Lifting Restriction of 10 lbs,Gait Belt above Incisional Area M3 OT- IP Subjective and Pain Start: 11/19/19 11:57 Freq: Status: Active Protocol: Document 11/20/19 12:34 [facility] (Rec: 11/20/19 12:42 [facility] [id number]) OT- Subjective Occupational Therapy Visit Type Type Treatment Note Visit Start Time 11:25 Visit Stop Time 11:50 Total Visit Minutes 25 Occupational Therapy Visit Comments Patient Comments Pt wanting to shower and pt's significant other here for caregiver training. Patient/Caregiver Goals To go home. OT Pain Assessment Pain When Pain Assessed At Rest Pain Present Pain Present Pain Reported Location back Intensity 5 Scale Used Numeric (0 - 10) M4 OT- IP ADL's Start: 11/19/19 11:57 Freq: Status: Active Protocol: Document 11/20/19 12:34 [facility] (Rec: 11/20/19 12:42 [facility] [id number]) OT [id number] General Evaluation Self-Feeding Ability Independent OT ADL-Dressing General Eval Lower Body Dressing Ability Moderate Assistance Comments OT Dressing Comments Pt able to use camp director to doff brief and socks and after the shower pt too tired and needing assist for LB dressing needs. OT ADL-Toileting Comments OT Toileting Comments Pt not needing to use the toilet. OT ADL-Bathing Bathing Type Bathing Type Shower General Evaluation Bathing Ability Moderate Assistance Areas Needing Assistance Wash/Dry Back,Wash/Dry Lower Extremities Comments OT Bathing Comments Pt needing assist to wash dry her back and legs. M6 OT- IP Functional Cognition Start: 11/19/19 11:57 Freq: Status: Active Protocol: Document 11/20/19 12:34 [facility] (Rec: 11/20/19 12:42 [facility] [id number]) Cognitive Factors Limiting Selfcare Function Cognitive Ability Level of Alertness Alert Patient Orientation Name,Age,Place,Situation Attention Span Ability Capable of Focused Attention, Capable of Sustained Attention Ability to Follow Commands Able to Follow Multi-Step Commands Memory Description No Deficits Noted Cognitive Comments Cognitive Assessment Comments Pt more alert today and along with pt's significant other has good understanding for all OT needs and equipment. M7 OT- IP Mobility and Balance Start: 11/19/19 11:57 Freq: Status: Active Protocol: Document 11/20/19 12:34 [facility] (Rec: 11/20/19 12:42 [facility] [id number]) OT-Transfer Assessment Sit to and From Stand Sit to and from Stand Minimal Assistance Transfers Transfer Ability Minimal Assistance Technique Transfer Destination Chair,Shower Stall,Toilet Devices Transfer Assistive Devices Gait Belt,Front Wheeled Walker Comments Mobility Comments FILOMENA to stand and FILOMENA for balance while stepping over the threshold of the shower with FWW. OT- Balance Assessment Sitting Balance and Reactions Static Sitting Balance Ability Normal Dynamic Sitting Balance Ability Good Standing Balance and Reactions Static Standing Balance Ability Fair M8 OT- IP Objective Assessments Start: 11/19/19 11:57 Freq: Status: Active Protocol: Document 11/19/19 11:58 [facility] (Rec: 11/19/19 12:17 [facility] [id number]) OT Gross Range of Motion Upper Extremity Range of Motion Assessment Within Functional Limits OT-Muscle Tone Assessment Muscle Tone WNL Yes M9 OT- IP Assessment and Plan Start: 11/19/19 11:57 Freq: Status: Active Protocol: Document 11/20/19 12:34 [facility] (Rec: 11/20/19 12:42 [facility] [id number]) OT Summary Assessment and Plan Potential Rehabilitation Potential Good Analytic Complexity at Evaluation Low Summary OT Impairments Pain,Functional Mobility, Grooming,Dressing,Toileting, Bathing,Toilet Transfers, Shower Transfers,Activity Tolerance Progress Towards Goals Progressing Toward Goals Assessment Summary Pt's significant other here for caregiver training and able to show good safety, understanding for all OT suggestions and equipment needs. Pt looking to go home today. Pt issued LB dressing equipment and still will benefit from BSC and tub bench . Goals Grooming Goal Independent Dressing Goal Independent Toileting Goal Independent Bathing Goal Independent Toilet Transfer Goal Independent Shower Transfer Goal Independent Patient/Caregiver Education Goal Demonstrate Post-Op Precautions,Caregiver Independent Assisting Patient Days to Meet Goals 4 Frequency of Treatment Frequency Of Treatment Once a Day Treatment Plan OT Treatment Plan ADL Training,Functional Mobility,Patient/Family Education,Discharge Planning Discharge Recommendations OT Discharge Recommendations Home with Assistance Home Equipment Needs BSC, tub transfer bench, LB dressing equipment Transportation Needs at Discharge Private Vehicle
[2019-11-20 15:49] VITALS: BP 126/63; PULSE 97; RESP 18; TEMP 36.6; O2SAT 100
--- NOTE | 2019-11-20 16:50 | PT.IPTN ---
Current Diagnoses Spondylolisthesis, lumbosacral region (11/19/19) Spinal stenosis, lumbar region with neurogenic claudication (11/19/19) Surgery Performed Operation Date: 11/18/19 11:45 Actual Procedures p S1-S2 TLIF - Jose Gunderson MD Physical Therapy Treatment Note M2 PT-IP Current Condition Start: 11/19/19 11:35 Freq: NEEDED Status: Active Protocol: Document 11/20/19 16:58 TP (Rec: 11/20/19 17:45 TP [email or web address]) Physical Therapy Current Condition Current Condition Evaluation Date 11/19/19 Treatment Diagnosis s/p S2S2 postlat/post fusion/ lami; difficulty in walking Onset Date 11/18/19 Precautions Lumbar Precautions Log Roll,No Twisting,Limit Bending,Lifting Restriction of 10 lbs,Gait Belt above Incisional Area M3 PT-IP Subjective Start: 11/19/19 11:35 Freq: NEEDED Status: Active Protocol: Document 11/20/19 16:58 TP (Rec: 11/20/19 17:45 TP [email or web address]) Subjective Physical Therapy Visit Type Type Treatment Note Visit Start Time 16:34 Visit Stop Time 16:50 Total Visit Minutes 16 Notes Student NAE Pham supervised by NAE Ramesh. Physical Therapy Visit Comments Patient Comments Pt in pain 7/10 resting reclined in bed. Pt agreeable to participate with PT. Therapy Pain Assessment Pain When Pain Assessed During Weight Bearing Pain Present Pain Present Pain Reported Location back Intensity 9 Scale Used Numeric (0 - 10) Pain Behaviors Crying,Facial Grimacing, Guarding,Moaning,Wincing Pain Management Techniques Apply Cold,Modification of Treatment,Re-positioning, Timing of Activity with Medications M4 PT-IP Mobility and Gait Start: 11/19/19 11:35 Freq: NEEDED Status: Active Protocol: Document 11/20/19 16:58 TP (Rec: 11/20/19 17:45 TP [email or web address]) PT-Bed Mobility Assessment Rolling Type of Rolling Log Rolling Level of Assist Contact Guard Assistance, Minimal Assistance,1 Person Assistance Supine to Sit Supine to Sit Contact Guard Assistance, Minimal Assistance,1 Person Assistance Sit to Supine Sit to Supine Contact Guard Assistance, Minimal Assistance,1 Person Assistance Scooting Scooting to Edge of Bed Standby Assistance PT-Transfer Assessment Sit to and From Stand Sit to and from Stand Minimal Assistance,1 Person Assistance,Use of Upper Extremities Equipment Transfer Assistive Device Gait Belt,Front Wheeled Walker Orthotic/Prosthetic Devices or Brace: No Transfers Transfer Destination Bed,Toilet Transfer Technique ambulated using FWW Transfer Ability Level of Assist Contact Guard Assistance, Minimal Assistance,1 Person Assistance,Use of Upper Extremities Comments Mobility Comments Pt resting in bed upon arrival . Pain 7/10. Pt agreeable to participate in PT. Express need to use toilet. From flat bed, supine to sit with L log roll, MinAx1 for trunk support. Gait belt and non- skid socks donned for safety. Sit to stand FWW, MinAx1. Weightshifts x10, FWW CGA. Ambulation to toilet FWW, CGA. Stand to sit at toilet with verbal cues to hold on to grab bars, FWW MinAx1. Pt able to void bladder and perform self -care. Assistance needed to doff and don underwear. Sit to stand, FWW MinAx1. Ambulation to sink to wash hands, FWW CGA. Pt reports pain at 9/10 during standing balance, requiring hand hold on FWW with one hand at all times due to pain. Ambulation to L EOB FWW, CGA. Stand to sit, FWW MinAx1 to control descent. Pain increases during transfers. Sit to sidelying, MinAx1 for assist with BLE. Pt positioned in L sidelying with pillow support in front, back, and between legs. SCD donned and turned on. Call light within reach and bed alarm activated for safety. All other needs within reach. Nursing notified of pt's performance during tx. Gait Assessment Gait Gait Assistance Required: Contact Guard Assist,1 Person Assist Distance (Feet) 30 Able to Maintain Weight Bearing Status Yes During Gait Assistive Devices Assistive Device Gait Belt,Front Wheeled Walker Orthotic/Prosthetic Devices or Brace: No Gait Deviations General Gait Pattern Antalgic,Decreased Stride Length,Decreased Feet Clearance Factors Limiting Gait Function Factors Limiting Gait Function Decreased Activity Tolerance, Decreased Strength,Limited Range of Motion,Pain,Poor Balance,Poor Safety Awareness Comments Gait Comments see mobility comments Stair Climbing Assessment Comments Stair Climbing Comments Not assessed. No stairs at home. PT-Balance Assessment Sitting Balance and Reactions Static Sitting Balance Ability Normal Dynamic Sitting Balance Ability Good Standing Balance and Reactions Static Standing Balance Ability Good Dynamic Standing Balance Ability Good Device Used FWW M5 PT-IP Objective Assessments Start: 11/19/19 11:35 Freq: NEEDED Status: Active Protocol: Document 11/19/19 09:32 AB (Rec: 11/19/19 11:53 AB [id number]) Orientation Orientation/Cognition Level of Alertness Alert Orientation Name Language Function Ability No Deficits Noted Safety Awareness Understands Safety Issues, Decreased Safety Awareness Gross Range of Motion Lower Extremity ROM Assessment Within Functional Limits Strength Lower Extremity Strength Assessment Bilaterally Impaired Comments Strength Comments LLE: 3+/5 RLE 3-/5 Coordination Assessment Gross Coordination Gross Coordination WNL Sensation Assessment Sensation Gross Sensation WNL Muscle Tone Muscle Tone WNL Yes M6 PT-IP Treatment Start: 11/19/19 11:35 Freq: NEEDED Status: Active Protocol: Document 11/20/19 16:58 TP (Rec: 11/20/19 17:45 TP [email or web address]) Physical Therapy Treatment Education Education Provided Weight Bearing Status,Safety M7 PT-IP Assessment and Plan Start: 11/19/19 11:35 Freq: NEEDED Status: Active Protocol: Document 11/20/19 16:58 TP (Rec: 11/20/19 17:45 TP [email or web address]) PT Summary Assessment and Plan Potential Rehabilitation Potential Good Status of Condition at Evaluation Evolving Summary Impairments Pain,ROM,Strength,Balance, Coordination,Sensation,Tone, Cognition,Bed Mobility, Transfers,Gait,Activity Tolerance Assessment Summary Pt pain increasing from 7/10 at rest to 9/10 in weightbearing while standing at the sink. Pt continues to have good technique for bed mobility to maintain spinal precautions despite pain. Able to ambulate with FWW, CGA . Activity tolerance diminished this afternoon due to pain. Pt is ready for discharge home with assist when medically stable and pain is well managed. Goals Bed Mobility Goal Standby Assistance Transfer Goal Standby Assistance,Front Wheeled Walker Gait Goal Standby Assistance,Front Wheel Walker Gait Distance 150 Frequency of Treatment Frequency Of Treatment Twice a Day Treatment Plan Physical Therapy Treatment Plan Bed Mobility Training,Transfer Training,Gait Training, Therapeutic Exercise,Balance Retraining,Post Op Education, Discharge Planning,Hot or Cold Pack,Neuromuscular Re-ed, Coordination Retraining,Manual Therapy Other Recommendations and Next Treatment ther ex, transfers, increase Focus ambulation Recommendations To Nursing Amount of Assist Needed 1 Person Assist Discharge Recommendations PT Discharge Recommendations Home with Assistance Other Discharge Recommendations Pt ready to discharge home with assist when medically stable Transportation Needs at Discharge Private Vehicle
[2019-11-20] MEDS: ONDANSETRON 4 MG/2 ML INJ IV (20:19)
[2019-11-20] MEDS: SENNOSIDES 8.6 MG TABLET 17.2 MG PO (20:19)
[2019-11-20 23:59] VITALS: BP 102/63; PULSE 89; RESP 18; TEMP 36.4; O2SAT 96
[2019-11-21] MEDS: hydrOXYzine pamoate 25 MG CAPSULE PO ×3 (00:40→11:43)
[2019-11-21] MEDS: OXYCODONE IR 10 MG TABLET PO ×4 (00:41→11:45)
[2019-11-21 05:46] VITALS: BP 99/64; PULSE 108; RESP 16; TEMP 37.1; O2SAT 98
[2019-11-21] MEDS: HYDROMORPHONE 0.5 MG INJ IV ×2 (06:59→13:30)
[2019-11-21] MEDS: ONDANSETRON 4 MG/2 ML INJ IV (07:04)
[2019-11-21] MEDS: ACETAMINOPHEN 325 MG TABLET 650 MG PO (07:04)
[2019-11-21] MEDS: DOCUSATE 100 MG CAPSULE PO (08:24)
[2019-11-21] MEDS: MULTIVITAMIN 1 TABLET 1 TAB PO (08:25)
[2019-11-21 08:30] VITALS: BP 119/74; PULSE 90; RESP 16; TEMP 36.5; O2SAT 96
--- NOTE | 2019-11-21 08:38 | PM.PN.1 ---
Exam Vital Signs (past 8 hours): - 11/21/19 05:46 Temperature 98.7 F Pulse Rate 108 H Respiratory Rate 16 Blood Pressure 99/64 Pulse Oximetry 98 Oxygen Delivery Method Room Air Oxygen Flow Rate 0 Assessment & Plan Assessment & Plan narrative: POD#3 s/p L5-S1 TLIF. Doing well overall with chronic migraine as chief complaint. Will do additional PT/OT today. Plan for d/c later today to home. Neurovascularly intact.' No s/s of DVT. Quality VTE Deep Vein Thrombosis/Pulmonary Embolism Present on Admission: No
--- NOTE | 2019-11-21 09:00 | PT.IPTN ---
Current Diagnoses Spondylolisthesis, lumbosacral region (11/19/19) Spinal stenosis, lumbar region with neurogenic claudication (11/19/19) Surgery Performed Operation Date: 11/18/19 11:45 Actual Procedures p S1-S2 TLIF - Jose Gunderson MD Physical Therapy Treatment Note M2 PT-IP Current Condition Start: 11/19/19 11:35 Freq: NEEDED Status: Active Protocol: Document 11/20/19 16:58 TP (Rec: 11/20/19 17:45 TP [email or web address]) Physical Therapy Current Condition Current Condition Evaluation Date 11/19/19 Treatment Diagnosis s/p S2S2 postlat/post fusion/ lami; difficulty in walking Onset Date 11/18/19 Precautions Lumbar Precautions Log Roll,No Twisting,Limit Bending,Lifting Restriction of 10 lbs,Gait Belt above Incisional Area M3 PT-IP Subjective Start: 11/19/19 11:35 Freq: NEEDED Status: Active Protocol: Document 11/21/19 08:55 [facility] (Rec: 11/21/19 09:00 [facility] [email or web address]) Subjective Physical Therapy Visit Type Type Treatment Note Visit Start Time 07:44 Visit Stop Time 08:15 Total Visit Minutes 29 Number of RETURNED [employer] Visits 0 Physical Therapy Visit Comments Patient Comments Pt agreeable to get up. Notes migraine Therapy Pain Assessment Pain When Pain Assessed During Mobility Location back Intensity 5 Scale Used Numeric (0 - 10) Pain Management Techniques Apply Cold,Modification of Treatment,Re-positioning, Timing of Activity with Medications M4 PT-IP Mobility and Gait Start: 11/19/19 11:35 Freq: NEEDED Status: Active Protocol: Document 11/21/19 08:55 [facility] (Rec: 11/21/19 09:00 [facility] [email or web address]) PT-Bed Mobility Assessment Rolling Type of Rolling Log Rolling Level of Assist Standby Assistance Supine to Sit Supine to Sit Standby Assistance,Bedrails Sit to Supine Sit to Supine Minimal Assistance Scooting Scooting to Edge of Bed Independent PT-Transfer Assessment Sit to and From Stand Sit to and from Stand Standby Assistance,Use of Upper Extremities Equipment Transfer Assistive Device Gait Belt,Front Wheeled Walker Orthotic/Prosthetic Devices or Brace: No Comments Mobility Comments Pt did all mobility with inc time d/t pain including migraine. She was able to do log roll with SBA with min cueing and use of rail. She did sit to stand SBA and was able to amb about 100ft SBA. She was able to sit on and off toilet with rail SBA but required assit for doff and donning brief. She was able to amb to sink and wash hands safely and do sit to supien with min A for LEs. Gait Assessment Gait Gait Assistance Required: Standby Assistance Distance (Feet) 100 Able to Maintain Weight Bearing Status Yes During Gait Assistive Devices Assistive Device Gait Belt,Front Wheeled Walker Orthotic/Prosthetic Devices or Brace: No Gait Deviations General Gait Pattern Antalgic,Decreased Stride Length,Decreased Feet Clearance Factors Limiting Gait Function Factors Limiting Gait Function Decreased Activity Tolerance, Decreased Strength,Limited Range of Motion,Pain,Poor Balance,Poor Safety Awareness Comments Gait Comments see mobility comments Stair Climbing Assessment Comments Stair Climbing Comments Not assessed. No stairs at home. M5 PT-IP Objective Assessments Start: 11/19/19 11:35 Freq: NEEDED Status: Active Protocol: Document 11/19/19 09:32 AB (Rec: 11/19/19 11:53 AB [email or web address]) Orientation Orientation/Cognition Level of Alertness Alert Orientation Name Language Function Ability No Deficits Noted Safety Awareness Understands Safety Issues, Decreased Safety Awareness Gross Range of Motion Lower Extremity ROM Assessment Within Functional Limits Strength Lower Extremity Strength Assessment Bilaterally Impaired Comments Strength Comments LLE: 3+/5 RLE 3-/5 Coordination Assessment Gross Coordination Gross Coordination WNL Sensation Assessment Sensation Gross Sensation WNL Muscle Tone Muscle Tone WNL Yes M6 PT-IP Treatment Start: 11/19/19 11:35 Freq: NEEDED Status: Active Protocol: Document 11/21/19 08:55 [facility] (Rec: 11/21/19 09:00 [facility] [email or web address]) Physical Therapy Treatment Education Education Provided Precautions,Safety Other Treatments Other Treatment Performed edu on importance fo small bouts of frequent activity M7 PT-IP Assessment and Plan Start: 11/19/19 11:35 Freq: NEEDED Status: Active Protocol: Document 11/21/19 08:55 [facility] (Rec: 11/21/19 09:00 [facility] [email or web address]) PT Summary Assessment and Plan Summary Impairments Pain,ROM,Strength,Balance, Coordination,Sensation,Tone, Cognition,Bed Mobility, Transfers,Gait,Activity Tolerance Assessment Summary Pt did well with all mobility today. She is slow moving d/t pain but is safe with all mobility. She is cleared for mobility portion of dc home with family assist and family educated where to get shower seat for pt. Goals Bed Mobility Goal Standby Assistance Transfer Goal Standby Assistance,Front Wheeled Walker Gait Goal Standby Assistance,Front Wheel Walker Gait Distance 150 Frequency of Treatment Frequency Of Treatment Twice a Day Treatment Plan Physical Therapy Treatment Plan Bed Mobility Training,Transfer Training,Gait Training, Therapeutic Exercise,Balance Retraining,Post Op Education, Discharge Planning,Hot or Cold Pack,Neuromuscular Re-ed, Coordination Retraining,Manual Therapy Other Recommendations and Next Treatment ther ex, transfers, increase Focus ambulation Recommendations To Nursing Amount of Assist Needed Standby Assistance Discharge Recommendations PT Discharge Recommendations Home with Assistance Other Discharge Recommendations Pt ready to discharge home with assist when medically stable Transportation Needs at Discharge Private Vehicle
[2019-11-21 12:30] VITALS: BP 109/65; PULSE 88; RESP 16; TEMP 36.6; O2SAT 96
--- NOTE | 2019-11-21 12:30 | OT.IPNOTE ---
Touched base with pt and significant other regarding OT needs. Pt and S. O. having no further questions for OT. Pt did mention that she may go and stay with her mother who has 3 steps with left hand rail going up and wanting to try the steps prior to going home. Notified PT of pt's request.
--- NOTE | 2019-11-21 14:03 | CM.DPC ---
DCP: continued: case received, EMR reviewed. DC to home order is noted. OT/PT worked with pt and has ok'd her for d/c to home setting with family support. Home: today
--- NOTE | 2019-11-21 14:24 | PC.NURSE ---
Day shift: Pt left unit at approx 1420 to car driven by SO. Taken by JENNIFER Chavez. Paperwork signed and all questions answered. Pt has all pewrsonal belongings and MD scripts. Dressing CDI. Medicated per JUN for car ride home to [place] and to get pain med scripts filled.
== END 2019-11-21 14:26 | disposition home health service (06) ==
LOC: OR 13:50 → AC 13:50
PROVIDERS: Admitting Provider Orthopaedic Surgery Orthopaedic Surgery of the Spine; Referring Provider Orthopaedic Surgery Orthopaedic Surgery of the Spine; Visit Provider Orthopaedic Surgery Orthopaedic Surgery of the Spine
PROC: (CPT 22633; principal; 2019-11-18 11:45)
DX: M43.17 Spondylolisthesis, lumbosacral region (principal); M48.062 Spinal stenosis, lumbar region with neurogenic claudication
CPT/HCPCS: 22633; 22853; 22840; 20939; 63047; 72100; 76000; 97116; 97162; 97165; 97530; 97535; C1776; G0378; C9290; J0330; J0690; J1100; J1170; J2250; J2405; J2704; J3010